=== PATIENT | female | born 1970 | race Caucasian/White ===

== ENCOUNTER 2020-07-14 09:08 | Emergency (ER) | payer OTHER ==
[~2020-07-14] VITALS: Ht 165.1 cm; Wt 136.1 kg
[~2020-07-14 09:08] MED LIST: AZITHROMYCIN 2250 MG PO; CLEOCIN HCL150 MG PO; DOXYCYCLINE 10100 MG PO; FUROSEMIDE PO; HYCET 7.5 MG-3473 ML PO; IBUPROFEN 600600 M1 PO; MOTRIN IB200 MG PO; NOHOMEMEDICATIONS; NORCO 5-325 TA1 EACH PO; PENICILLIN VK500 M1 PO; PREDNISONE 20 M20 MG PO; PROAIR HFA8.5 GM INH; PROMETH-CODEIN 65 ML PO; ROBITUSSIN DM118 ML PO; ULTRAM 50MG TAB50 MG PO; VENTOLIN HFA 1818 GM INH; ZPAK PO
[2020-07-14 10:10] LABS: ABSOLUTE NEUTROPHILS 3.4 thou/uL (1.4-8.2); BASOPHILS 0.6 % (0.0-2.0); EOSINOPHILS 1.3 % (0.0-3.0); HEMATOCRIT 51.5 % (37.0-47.0); HEMOGLOBIN 17.1 gm/dL (12.0-15.0); LYMPHOCYTES 28.6 % (24.0-44.0); MCHC 33.3 g/dL (28.0-37.0); MCV 105.3 fL (80.0-100.0); MONOCYTES 4.8 % (1.0-8.0); PLATELET COUNT 179 thou/uL (150-400); POLYS 64.7 % (36.0-66.0); RBC 4.89 mil/uL (4.20-5.00); WBC 5.3 thou/uL (4.0-11.0)
[2020-07-14] MEDS ORDERED: DICLOFENAC SODI75 MG PO (10:15)
[2020-07-14 10:21] LABS: ANION GAP 6 mmol/L (7-16); BUN 14 mg/dL (7-18); CALCIUM 8.7 mg/dL (8.5-10.1); CHLORIDE 105 mmol/L (98-107); CO2 32 mmol/L (21-32); GLUCOSE 123 mg/dL (74-106); POTASSIUM 4.8 mmol/L (3.5-5.1); SODIUM 143 mmol/L (136-145)
[2020-07-14 10:32] LABS: ALBUMIN 3.3 g/dL (3.4-5.0); DIRECT BILIRUBIN < 0.1 mg/dL (<0.1-0.2); LIPASE 147 U/L (73-393); SGOT 18 U/L (15-37); SGPT 26 U/L (30-65); TOTAL BILIRUBIN 0.6 mg/dL (0.2-1.0); TOTAL PROTEIN 6.7 g/dL (6.4-8.2); TROPONIN-I <0.06 ng/mL (<0.06)
--- NOTE | 2020-07-14 11:07 | EKG ---
[address] [place] [address] ELECTROCARDIOGRAM REPORT Name: JAX HANRA Infante [id number] Admission: 07/14/20 Attend Phys: Discharge: Date of : 72 Report #: [id number] [facility] ED Test Date: 2020-07-14 Test Time: 09:22:00 Pat Name: ROSIE HAN Department: Room: Gender: F Chief Guard: LUIS : 1970 Requested By: Susan Meeks Order Number: [id number] MD: Chema Hill Measurements Intervals [place] Rate: 95 P: 77 NC: 127 QRS: 81 QRSD: 92 T: 60 QT: 349 QTc: 439 Interpretive Statements Sinus rhythm Left atrial enlargement Compared to ECG 12/19/2012 11:32:40 Atrial abnormality now present Sinus arrhythmia no longer present Electronically Signed On 07-14-2020 11:07:00 CDT by Chema Hill [email or web address] <ELECTRONICALLY SIGNED> By: Chema Hill MD 07/14/20 1107 0922 1 Chema Hill MD /MARCEL
[2020-07-14 15:16] VITALS: BP 116/65
== END 2020-07-14 15:18 | disposition home or self-care (01) ==
LOC: ER 09:08
PROVIDERS: Emergency Medicine
DX: R07.9 Chest pain, unspecified (principal); F17.210 Nicotine dependence, cigarettes, uncomplicated; Z79.899 Other long term (current) drug therapy; Z91.048 Other nonmedicinal substance allergy status

== ENCOUNTER 2020-09-19 15:41 | Inpatient (IN) | payer OTHER ==
[~2020-09-19] VITALS: Ht 165.1 cm; Wt 152.4 kg
[~2020-09-19 15:41] MED LIST changes: +DICLOFENAC SODI75 MG PO
[2020-09-19 15:52] VITALS: BP 128/96
[2020-09-19 16:17] LABS: ABSOLUTE NEUTROPHILS 3.9 thou/uL (1.4-8.2); EOSINOPHILS 1.1 % (0.0-3.0); HEMATOCRIT 54.1 % (37.0-47.0); LYMPHOCYTES 21.1 % (24.0-44.0); MCHC 33.3 g/dL (28.0-37.0); MONOCYTES 3.7 % (1.0-8.0); PLATELET COUNT 182 thou/uL (150-400); POLYS 73.1 % (36.0-66.0); RBC 5.15 mil/uL (4.20-5.00); RDW 14.9 % (10.5-14.5); WBC 5.3 thou/uL (4.0-11.0)
[2020-09-19 16:29] LABS: ANION GAP 6 mmol/L (7-16); BUN 12 mg/dL (7-18); CALCIUM 8.7 mg/dL (8.5-10.1); CHLORIDE 103 mmol/L (98-107); CO2 33 mmol/L (21-32); CREATININE 1.1 mg/dL (0.6-1.0); GLUCOSE 119 mg/dL (74-106); POTASSIUM 4.7 mmol/L (3.5-5.1); SODIUM 142 mmol/L (136-145)
[2020-09-19 16:34] LABS: ALBUMIN 3.4 g/dL (3.4-5.0); SGOT 23 U/L (15-37); SGPT 41 U/L (14-59); TOTAL BILIRUBIN 0.6 mg/dL (0.2-1.0); TOTAL PROTEIN 6.8 g/dL (6.4-8.2); TROPONIN-I <0.06 ng/mL (<0.06)
--- NOTE | 2020-09-19 16:44 | EKG ---
[address] [place] [address] ELECTROCARDIOGRAM REPORT Name: ROSIE HAN Room #: REG [facility]#: [id number] Admission: 09/19/20 Attend Phys: Discharge: Date of : 72 Report #: [id number] [facility] ED Test Date: 2020-09-19 Test Time: 16:32:45 Pat Name: ROSIE HAN Department: Room: Gender: F Digital Specialist: ban : 1970 Requested By: Iain Vizcarra Order Number: [id number] MD: Shantanu Pichardo Measurements Intervals [place] Rate: 98 P: 61 DC: 126 QRS: 95 QRSD: 94 T: 53 QT: 350 QTc: 447 Interpretive Statements Sinus rhythm Borderline right axis deviation Baseline wander in lead(s) V2 Compared to ECG 07/14/2020 09:22:00 Atrial abnormality no longer present Electronically Signed On 09-19-2020 16:44:30 CDT by Shantanu Pichardo [email or web address] <ELECTRONICALLY SIGNED> By: Shantanu Pichardo MD, [facility] 09/19/20 1644 1632 1632 Shantanu Pichardo MD, FACC /EPI
[2020-09-19 17:22] LABS: BE(vivo) 1.6 mmol/L (-2 to +3); HCO3 28.6 mmol/L (22.0-26.0); PCO2 52.6 mmHg (35.0-45.0); PO2 61.5 mmHg (80.0-100.0); pH 7.353 (7.360-7.450); sO2 90.2 % (92.0-98.0)
[2020-09-19 20:10] VITALS: BP 124/83
[2020-09-19 20:58] VITALS: BP 91/51
[2020-09-19 21:24] VITALS: BP 132/78
[2020-09-20 03:41] VITALS: BP 128/71
[2020-09-20 04:59] LABS: HEMATOCRIT 52.3 % (37.0-47.0); HEMOGLOBIN 17.2 gm/dL (12.0-15.0); MCH 34.7 pg (26.0-34.0); MCV 105.2 fL (80.0-100.0); RBC 4.97 mil/uL (4.20-5.00); RDW 14.9 % (10.5-14.5); WBC 7.3 thou/uL (4.0-11.0)
[2020-09-20 05:40] LABS: CALCIUM 8.4 mg/dL (8.5-10.1); CREATININE 1.1 mg/dL (0.6-1.0); POTASSIUM 4.5 mmol/L (3.5-5.1)
--- NOTE | 2020-09-20 06:24 | NUR ---
ASSESSMENT: PT ARRIVED TO THE UNIT AT APPROXIMATELY 2100 VIA CART FROM ED. PT IS ALERT AND ORIENT TIMES FOUR. UP AD YASMIN IN THE ROOM. 4-5 LITERS OF O2 PER NC, SATS 90-93% OCCASSIONAL NON-PRODUCTIVE COUGH. SOB WITH EXERTION. DOES NOT WEAR O2 AT HOME. VSS, AFEBRILE. SR PER MONITOR. NO WOUNDS PER ASSESSMENT. WILL CONTINUE TO MONITOR.
[2020-09-20 08:40] VITALS: BP 108/73
[2020-09-20 11:00] VITALS: BP 99/57
[2020-09-20 16:00] VITALS: BP 97/83
--- NOTE | 2020-09-20 17:27 | NUR ---
ASSESSMENT CHARTED - MEDS PER JUN - NO CO'S OF PAIN OR NAUSEA. ELKE DIET AND FLUIDS. UP AD YASMIN IN ROOM. OS HAS REMAINED AT 4 L NC. PT SOB WITH EXERTION. NO CO'S AT THE PRESENT TIME. STATES SHE IS COMFORTABLE.
[2020-09-20 20:15] VITALS: BP 135/55
--- NOTE | 2020-09-21 03:14 | NUR ---
ASSESSMENT: PT REMAIN ALERT AND ORIENT TIMES FOUR. UP AD YASMIN TO BR WITH STEADY GAIT. PT DOING NOC DESAT ON 2 LITERS PER NC. SATS RANGING FROM 88-91% MOST TIMES. DENIES PAIN, N/V. SOB WITH AMBULATION. VSS, AFEBRILE. SALINE LOCKED. SR PER MONITOR. SLOW PROGRESS TOWARDS DC GOALS., WILL CONTINUE TO MONITOR.
[2020-09-21 05:00] VITALS: BP 91/48
[2020-09-21 08:00] VITALS: BP 118/85
[2020-09-21 12:15] VITALS: BP 127/74
[2020-09-21 19:48] VITALS: BP 140/79
[2020-09-22 04:33] VITALS: BP 137/94
--- NOTE | 2020-09-22 05:44 | NUR ---
PROGRESS PT A/O X4 , LUNGS COARSE WITH WHEEZING NOTED THROUGHOUT. ON ROOM AIR SATS AT 88 TO 92. NOCTURNAL OXIMETRY STUDY IN PROGRESS PT DROPPING TO MID 70'S ON 1 LITER O2, THE SOUNDER SHE SLEPT THE LOWER HER O2 SATS BECAME AT ONE POINT IT WAS DOWN TO 29, O2 INCREASED TO 3 LITERS AND SATS BOUNCED RIGHT BACK UP TO HIGH 80'S TO LOW 90'S. SKIN C/D/I VOIDING QS, UP AD YASMIN DENIES PAIN. WANTS TO DISCHARGE HOME FOR FATHERS DAY. SOLUMEDROL AND IV ANTIBIOTICS CONTINUE.
[2020-09-22 08:00] VITALS: BP 124/87
[2020-09-22 16:00] VITALS: BP 128/75
--- NOTE | 2020-09-22 17:47 | NUR ---
PT ALERT AND ORIENTED TIMES FOUR. VSS, SR ON TELE. PT DENIES PAIN/SOA. PT TOLERATES MEDS AND MEALS. PT UP AB YASMIN WITH STEADY GAIT. PT AT BEDSIDE THIS EVENING. PT PRTGRESSING SRINI POC GOALS.
[2020-09-22 19:22] VITALS: BP 120/76
[2020-09-23 04:07] VITALS: BP 121/67
[2020-09-23 08:48] VITALS: BP 124/71
--- NOTE | 2020-09-23 12:02 | 2DMMODE ---
[facility] [place] [address] 2 D/M-MODE ECHOCARDIOGRAM Name: ROSIE HAN Arelis Room #: 211-P ADM IN M.R.#: [id number] Admission: 09/19/20 Attend Phys: Johnie Burk MD Discharge: Date of : 72 Report #: [id number] THIS REPORT FOR: cc: Lissett Rogers,Fadi Flores MD ~ APPROVED REPORT Study performed: 09/23/2020 10:56:05 EXAM: Comprehensive 2D, Doppler, and color-flow Echocardiogram Patient Location: Bedside Room #: 211 Status: routine BSA: 2.46 HR: 95 bpm BP: 121/67 mmHg Rhythm: NSR Other Information Study Quality: Adequate Technically limited study due to body habitus. Indications Dyspnea 2D Dimensions IVSd: 9.06 (7-11mm) LVOT Diam: 21.76 (18-24mm) LVDd: 61.45 mm PWd: 9.50 (7-11mm) Ascending Ao: 39.63 (22-36mm) LVDs: 41.40 (25-40mm) Left Atrium: 41.79 (27-40mm) Aortic Root: 38.02 mm Aortic Valve AoV Peak Shashi.: 1.48 m/s AO Peak Gr.: 8.78 mmHg LVOT Max P.66 mmHg LVOT Max V: 1.08 m/s GAIL Vmax: 2.71 cm2 Mitral Valve E/A Ratio: 0.8 MV Decel. Time: 282.77 ms MV E Max Shashi.: 1.03 m/s [facility] [address] [place] [address] 2 D/M-MODE ECHOCARDIOGRAM Name: ROSIE HAN Arelis Room #: 211-P [facility]#: [id number] Admission: 09/19/20 Attend Phys: Johnie Burk MD Discharge: Date of : 72 Report #: [id number] MV A Shashi.: 1.23 m/s MV PHT: 82.00 ms IVRT: 145.33 ms Pulmonary Valve PV Peak Shashi.: 1.06 m/s PV Peak Gr.: 4.47 mmHg Pulmonary Vein P Vein S: 0.40 m/s P Vein A: 0.36 m/s P Vein D: 0.36 m/s P Vein A Dur.: 100.3 msec P Vein S/D Ratio: 1.11 Left Ventricle The left ventricle is normal size. There is normal left ventricular wall thickness. The overall left ventricular systolic function appears grossly normal. LVEF is 55-60%. Grade I - abnormal relaxation pattern. Right Ventricle The right ventricle is normal size. The right ventricular systolic function is normal. Atria The left atrium size is normal. The right atrium size is normal. Aortic Valve The aortic valve is normal in structure. No aortic regurgitation is present. There is no aortic valvular stenosis. Mitral Valve The mitral valve is normal in structure. Trace mitral regurgitation. No evidence of mitral valve stenosis. Tricuspid Valve The tricuspid valve is normal in structure. There is no tricuspid valve regurgitation noted. Pulmonic Valve The pulmonary valve is normal in structure. There is no pulmonic valvular regurgitation. Great Vessels The aortic root is normal in size. IVC is normal in size and collapses >50% with inspiration. [facility] [place] [address] 2 D/M-MODE ECHOCARDIOGRAM Name: GUILLEROSIE Room #: 211-P ADM IN M.R.#: [id number] Admission: 09/19/20 Attend Phys: Johnie Burk MD Discharge: Date of : 72 Report #: [id number] Pericardium There is no pericardial effusion. <Conclusion> The left ventricle is normal size. There is normal left ventricular wall thickness. The overall left ventricular systolic function appears grossly normal. Grade I - abnormal relaxation pattern. The right ventricle is normal size. The left atrium size is normal. The aortic valve is normal in structure. Trace mitral regurgitation. <ELECTRONICALLY SIGNED> By: Fadi Miller MD 09/23/20 1202 1202 1202 Fadi Miller MD /INF
--- NOTE | 2020-09-23 14:34 | NUR ---
PT RESTING COMFORTABLY. ECHO DONE AT BEDSIDE. DR CLAUDIO WOULD LIKE THE PT TO STAY ONE MORE DAY. PT AFEBRILE, ADEQUATE UOP, APPROPRIATE APPETITE. PT HAS BEEN THOUROUGHLY UPDATED AND EDUCATED ON PT CONDITION AND POC. PT PROGRESSING TOWARDS POC.
--- NOTE | 2020-09-23 15:04 | NUR ---
met with patient who admits with dsypnea. Patient reports she is staying at her sisters home. She works 3 days a week. She has spoken with employment who has taken her off the schedule until she can return to work. Plan dc home independently. patient likely needs oxygen for home. Patients PCP Dr Lissett Rogers. Casemgt following
[2020-09-23 16:29] VITALS: BP 116/63
[2020-09-23 20:00] VITALS: BP 124/72
[2020-09-24 04:10] VITALS: BP 133/88
[2020-09-24 06:14] LABS: HEMATOCRIT 50.2 % (37.0-47.0); HEMOGLOBIN 16.7 gm/dL (12.0-15.0); MCH 34.4 pg (26.0-34.0); MCHC 33.3 g/dL (28.0-37.0); MCV 103.2 fL (80.0-100.0); RBC 4.86 mil/uL (4.20-5.00); RDW 14.5 % (10.5-14.5); WBC 6.8 thou/uL (4.0-11.0)
[2020-09-24 06:27] LABS: CALCIUM 8.2 mg/dL (8.5-10.1); CREATININE 0.9 mg/dL (0.6-1.0); MAGNESIUM 2.1 mg/dL (1.8-2.4); POTASSIUM 5.2 mmol/L (3.5-5.1)
--- NOTE | 2020-09-24 07:25 | NUR ---
DENIES PAIN AND SOB.PATIENT ON 3L NC.RECEIVES BREATHING.MONITOR SHOWS SR.POC CONTINUED.
[2020-09-24 08:35] VITALS: BP 145/90
--- NOTE | 2020-09-24 10:28 | NUR ---
Nutrition: pt admitted with acute respiratory failure, bronchospasm, possible new dx COPD. Seen due to BMI 55, extreme class 3 obesity. Pt eating 75-100% of meals on regular diet. No recent weight changes other than fluid retention, 1+ gen. edema. Currently with elevated K+-5.2. RD offered diet education for weight loss, pt declined and states she received materials from her doctor. May consider heart healthy diet restriction rather than regular. Low nutrition risk.
[2020-09-24 11:40] VITALS: BP 122/75
[2020-09-24] MEDS ORDERED: ALBUTEROL2.5 MG/0.5 INH (11:46)
[2020-09-24] MEDS ORDERED: LASIX 40 MG TAB40 MG PO (11:46)
[2020-09-24] MEDS ORDERED: MIRALAX17 GM PO (11:46)
[2020-09-24] MEDS ORDERED: LEVOFLOXACIN500 MG PO (11:46)
[2020-09-24] MEDS ORDERED: PREDNISONE 20 M20 M1 PO (11:46)
[2020-09-24] MEDS ORDERED: PEPCID20 MG PO (11:46)
[2020-09-24] MEDS ORDERED: Nicotine Transdermal TRANSDERM (11:46)
[2020-09-24] MEDS ORDERED: ACETAMINOPHEN325 M1 PO (11:46)
[2020-09-24 12:50] VITALS: BP 147/80
[2020-09-24 13:16] VITALS: BP 122/75
[2020-09-24 14:29] VITALS: BP 122/75
--- NOTE | 2020-09-24 16:10 | NUR ---
PT'S IV REMOVED AND TELE REMOVED. PT GIVEN D/C PAPERWORKS AND NEW PRESCRIPTIONS GIVEN. PT GIVEN CARE NOTES FOR NEW PRESCRIPTIONS. CASE MANAGEMENT SET PT UP WITH 1 TANK OF HOME O2 AND IT WAS DELIVERED TO PT PRIOR TO D/C. PT WAS WHEELED TO PRIVATE VEHICLE VIA WHEELCHAIR. PT TOOK HER BELONGINGS WITH HER AND NEW O2 TANK WELL.
--- NOTE | 2020-09-24 17:52 | NUR ---
Patient to dc home she does not want home health care. Agreeable to home oxygen and does not have a preference for DME. Faxed clinical to [facility]. Reviewed with patient process of dc with oxygen. She is staying at sisters home. Veridied address and alerted [facility] [address] [place] [address]. Alerted to patient once home call [facility] to deliver oxygen. no further needs
== END 2020-09-24 16:00 | disposition home or self-care (01) | DRG 193 ==
LOC: ER 15:41 → EROBS 19:40 → 2N 20:58
PROVIDERS: Nurse Practitioner Family; Physician Assistant; ADMIT Internal Medicine; ATTEND Internal Medicine
DX: J18.9 Pneumonia, unspecified organism (principal); J96.21 Acute and chronic respiratory failure with hypoxia; J96.22 Acute and chronic respiratory failure with hypercapnia; J44.1 Chronic obstructive pulmonary disease with (acute) exacerbation; J44.0 Chronic obstructive pulmonary disease with (acute) lower respiratory infection; E66.2 Morbid (severe) obesity with alveolar hypoventilation; Z68.43 Body mass index [BMI] 50.0-59.9, adult; J11.1 Influenza due to unidentified influenza virus with other respiratory manifestations; F17.210 Nicotine dependence, cigarettes, uncomplicated; D75.1 Secondary polycythemia; Z20.822 Contact with and (suspected) exposure to COVID-19; J45.909 Unspecified asthma, uncomplicated; Z82.49 Family history of ischemic heart disease and other diseases of the circulatory system; Z83.3 Family history of diabetes mellitus; Z80.3 Family history of malignant neoplasm of breast; Z71.6 Tobacco abuse counseling; Z83.6 Family history of other diseases of the respiratory system; Z91.19 Patient's noncompliance with other medical treatment and regimen
CPT/HCPCS: 10081

== ENCOUNTER 2020-10-05 21:14 | Emergency (ER) | payer OTHER ==
[~2020-10-05] VITALS: Ht 162.6 cm; Wt 156.0 kg
[~2020-10-05 21:14] MED LIST changes: +ACETAMINOPHEN325 M1 PO; +ALBUTEROL2.5 MG/0.5 INH; +LASIX 40 MG TAB40 MG PO; +LEVOFLOXACIN500 MG PO; +MIRALAX17 GM PO; +Nicotine Transdermal TRANSDERM; +PEPCID20 MG PO; +PREDNISONE 20 M20 M1 PO
[2020-10-05 21:28] VITALS: BP 119/71
[2020-10-05] MEDS ORDERED: DICLOFENAC35 MG PO (21:47)
[2020-10-05 22:04] LABS: ABSOLUTE NEUTROPHILS 9.5 thou/uL (1.4-8.2); BASOPHILS 0.4 % (0.0-2.0); EOSINOPHILS 0.2 % (0.0-3.0); LYMPHOCYTES 10.8 % (24.0-44.0); MCH 35.9 pg (26.0-34.0); MCHC 35.4 g/dL (28.0-37.0); MCV 101.5 fL (80.0-100.0); MONOCYTES 3.8 % (1.0-8.0); PLATELET COUNT 190 thou/uL (150-400); POLYS 84.8 % (36.0-66.0); RBC 5.02 mil/uL (4.20-5.00); RDW 14.7 % (10.5-14.5); WBC 11.2 thou/uL (4.0-11.0)
[2020-10-05 22:14] LABS: CALCIUM 8.7 mg/dL (8.5-10.1); CREATININE 1.1 mg/dL (0.6-1.0)
[2020-10-05 22:16] LABS: POTASSIUM 4.4 mmol/L (3.5-5.1)
[2020-10-05 22:20] LABS: ALBUMIN 3.5 g/dL (3.4-5.0); TOTAL BILIRUBIN 1.1 mg/dL (0.2-1.0); TOTAL PROTEIN 6.7 g/dL (6.4-8.2)
== END 2020-10-05 23:04 | disposition home or self-care (01) ==
LOC: ER 21:14
PROVIDERS: Emergency Medicine
DX: R10.11 Right upper quadrant pain (principal); F17.210 Nicotine dependence, cigarettes, uncomplicated; Z86.39 Personal history of other endocrine, nutritional and metabolic disease; Z86.32 Personal history of gestational diabetes; Z98.890 Other specified postprocedural states; Z87.891 Personal history of nicotine dependence

== ENCOUNTER → 2020-11-08 | Outpatient (CLI) | payer OTHER ==
[~2020-11-08] MED LIST changes: +DICLOFENAC35 MG PO
== END ==
LOC: RAD 08:31
PROVIDERS: ATTEND Pediatrics
DX: J84.89 Other specified interstitial pulmonary diseases (principal); J98.11 Atelectasis; R91.8 Other nonspecific abnormal finding of lung field

== ENCOUNTER → 2020-12-28 | Outpatient (CLI) | payer OTHER ==
--- NOTE | 2021-01-20 15:11 | SLE ---
[facility] [place] [place] [address] POLYSOMNOGRAPHY STUDY Name: ROSIE HAN Room #: REG [facility]#: [id number] Admission: 12/28/20 Attend Phys: Alex Paulino MD Discharge: Date of : 72 Report #: [id number] THIS REPORT FOR: cc: Lissett Rogers Christine L. DO Khan, Aman U. MD ~ cc: Alex Paulino MD DATE OF SERVICE: 12/29/2020 SLEEP STUDY ATTENDING PHYSICIAN: Dr. Alex Paulino. The patient is 50 years old who weighs 333 pounds with a BMI of 59. The patient underwent split night study performed at [facility]. During the night study, the patient spent 360 minutes in bed and slept for 275 minutes with a sleep efficiency of 76%. Sleep latency was 27.7 minutes with a REM latency of 116 minutes. Sleep architecture showed increased stage I and stage II sleep, reduced N3 sleep and reduced REM sleep. During the initial diagnostic portion of the study, the patient slept for 120 minutes. During that time, there were 13 obstructive apneas, no mixed apneas and 2 central apneas. The patient had 77 hypopneas. The patient's AHI was 45.8 per hour with a REM AHI of 54.5 per hour and a supine AHI of 0 per hour. EKG monitoring revealed an average heart rate of 109 beats per minute. No sustained arrhythmias were observed. PLMs were seen at an index of 75 per hour and 11 per hour caused EEG arousals. PLM index improved to 27 per hour with an arousal index of 5 per hour while the patient slept on CPAP. Nocturnal oximetry study during the diagnostic portion revealed an average oxygen saturation of 65% with a lowest of 34%. 22 minutes were spent with oxygen saturation between 70 and 79% and then 48 minutes with saturation between 60 and 69% and another 34 minutes with saturation between 50 and 59%. The patient met the split night criteria for CPAP initiation. This started at 10 cm of water for patient's comfort. Pressure was titrated up to 15 cm of water. Due to persistent respiratory events, the patient was switched to BiPAP at a pressure of 14/16. The patient's nocturnal hypoxia persisted despite improvement in respiratory events. Two liters of oxygen was added. At the final BiPAP pressure of 18/12 with 2 liters of oxygen, the patient had 32 minutes of sleep. The patient's AHI was still 33 per hour. Optimum CPAP/BiPAP [facility] [address] [place] [address] POLYSOMNOGRAPHY STUDY Name: ROSIE HAN Room #: [facility]#: [id number] Admission: 12/28/20 Attend Phys: Alex Paulino MD Discharge: Date of : 72 Report #: [id number] pressure was not achieved. I would recommend the patient should be placed on an auto BiPAP. IMPRESSION: 1. Severe ANTONIETA at an AHI of 45.8 per hour. 2. Severe nocturnal hypoxia, not completely resolved with BiPAP. 3. Severe PLMs which improved from a PLM index of 75 per hour to 27 per hour while the patient slept on CPAP. RECOMMENDATIONS: 1. Optimum CPAP/BiPAP pressure was not achieved on this split night study. I would recommend the patient should be placed on auto BiPAP with a maximum IPAP pressure of 22 and a minimum EPAP pressure of 16 with pressure support of 4. The patient should be placed on 2 liters of oxygen with the BiPAP. The patient should have an outpatient nocturnal oximetry study at this final pressure to assess the efficacy of 2 liters of oxygen. 2. Once the patient is optimally treated, then follow up in 4-6 weeks to assess compliance and to document clinical improvement along with review of the download data. 3. Weight loss is strongly advised. 4. Avoid [employer] depressants. 5. Cautioned regarding driving until symptoms of sleep apnea resolve with the above recommendation. <ELECTRONICALLY SIGNED> By: Patrick Schultz MD 01/20/21 1511 1555 1626 Patrick Schultz MD /nt
== END ==
LOC: SLEEPLAB 09:14
PROVIDERS: ATTEND Internal Medicine Pulmonary Disease
DX: G47.33 Obstructive sleep apnea (adult) (pediatric) (principal); G47.19 Other hypersomnia; R53.83 Other fatigue; J44.9 Chronic obstructive pulmonary disease, unspecified; J45.30 Mild persistent asthma, uncomplicated; J96.11 Chronic respiratory failure with hypoxia; E66.01 Morbid (severe) obesity due to excess calories; Z68.43 Body mass index [BMI] 50.0-59.9, adult; Z72.0 Tobacco use; D75.1 Secondary polycythemia; Z86.16 Personal history of COVID-19; Z20.822 Contact with and (suspected) exposure to COVID-19

== ENCOUNTER 2021-02-06 11:39 | Inpatient (IN) | payer OTHER ==
[~2021-02-06] VITALS: Ht 162.6 cm; Wt 145.8 kg
[~2021-02-06 11:39] MED LIST changes: +FUROSEMIDE 40 M40 MG PO
[2021-02-06] MEDS ORDERED: AUGMENTIN 875-1 EACH PO (12:47)
[2021-02-06] MEDS ORDERED: PULMICORT0.5 MG/21 INH (12:48)
[2021-02-06] MEDS ORDERED: IPRAT-ALBUT 0.5-3 ML INH (12:48)
[2021-02-06] MEDS ORDERED: PREDNISONE 10 M10 M1 PO (12:48)
[2021-02-07 20:50] VITALS: BP 125/86
[2021-02-08 06:16] LABS: HEMOGLOBIN 18.8 gm/dL (12.0-15.0); MCH 29.4 pg (26.0-34.0); MCV 94.8 fL (80.0-100.0); RBC 6.39 mil/uL (4.20-5.00); RDW 19.1 % (10.5-14.5); WBC 9.5 thou/uL (4.0-11.0)
[2021-02-08 06:29] LABS: HEMATOCRIT 60.6 % (37.0-47.0)
[2021-02-08 06:56] LABS: CALCIUM 9.4 mg/dL (8.5-10.1); POTASSIUM 3.7 mmol/L (3.5-5.1)
[2021-02-08 07:18] LABS: FOLIC ACID 5.3 ng/mL (8.6-58.9)
[2021-02-08 08:00] VITALS: BP 111/56
[2021-02-08 12:44] LABS: HEMOGLOBIN 18.8 gm/dL (12.0-15.0); MCH 29.5 pg (26.0-34.0); MCHC 31.2 g/dL (28.0-37.0); MCV 94.7 fL (80.0-100.0); PLATELET COUNT 218 thou/uL (150-400); RBC 6.37 mil/uL (4.20-5.00); RDW 19.4 % (10.5-14.5); WBC 8.1 thou/uL (4.0-11.0)
[2021-02-08 12:58] LABS: HEMATOCRIT 60.3 % (37.0-47.0)
[2021-02-08 13:55] LABS: ANISOCYTOSIS 2+
[2021-02-08 14:29] LABS: BASOPHILS 0.2 % (0.0-2.0); EOSINOPHILS 0.1 % (0.0-3.0); HEMATOCRIT 58.6 % (37.0-47.0); HEMOGLOBIN 18.5 gm/dL (12.0-15.0); LYMPHOCYTES 5.7 % (24.0-44.0); MCH 29.4 pg (26.0-34.0); MCHC 31.5 g/dL (28.0-37.0); MCV 93.3 fL (80.0-100.0); MONOCYTES 4.6 % (1.0-8.0); PLATELET COUNT 198 thou/uL (150-400); POLYS 89.4 % (36.0-66.0); RBC 6.28 mil/uL (4.20-5.00); RDW 18.4 % (10.5-14.5); WBC 7.8 thou/uL (4.0-11.0)
[2021-02-08 15:48] LABS: ANISOCYTOSIS 2+; TARGET CELLS FEW
[2021-02-08 19:04] VITALS: BP 108/58
[2021-02-09 06:11] LABS: HEMATOCRIT 57.9 % (37.0-47.0); HEMOGLOBIN 18.1 gm/dL (12.0-15.0); MCH 29.5 pg (26.0-34.0); MCHC 31.2 g/dL (28.0-37.0); MCV 94.6 fL (80.0-100.0); RBC 6.12 mil/uL (4.20-5.00); RDW 18.9 % (10.5-14.5); WBC 6.9 thou/uL (4.0-11.0)
[2021-02-09 06:22] LABS: CALCIUM 9.2 mg/dL (8.5-10.1); CREATININE 0.8 mg/dL (0.6-1.0)
[2021-02-09 08:30] VITALS: BP 96/53
[2021-02-09 19:17] VITALS: BP 111/55
[2021-02-10 09:14] VITALS: BP 98/60
[2021-02-10 19:49] VITALS: BP 102/60
[2021-02-11 09:57] VITALS: BP 99/61
[2021-02-11 19:11] VITALS: BP 108/64
[2021-02-12 08:00] VITALS: BP 106/63
[2021-02-12 11:52] VITALS: BP 106/63
[2021-02-12 19:56] VITALS: BP 123/77
[2021-02-13 08:00] VITALS: BP 117/72
[2021-02-13 10:22] VITALS: BP 117/72
[2021-02-13 19:29] VITALS: BP 119/73
[2021-02-14 03:55] LABS: ABSOLUTE NEUTROPHILS 3.9 thou/uL (1.4-8.2); BASOPHILS 0.7 % (0.0-2.0); EOSINOPHILS 1.1 % (0.0-3.0); HEMATOCRIT 50.9 % (37.0-47.0); HEMOGLOBIN 15.9 gm/dL (12.0-15.0); LYMPHOCYTES 32.6 % (24.0-44.0); MCH 29.6 pg (26.0-34.0); MCHC 31.3 g/dL (28.0-37.0); MCV 94.5 fL (80.0-100.0); MONOCYTES 6.8 % (1.0-8.0); PLATELET COUNT 215 thou/uL (150-400); POLYS 58.8 % (36.0-66.0); RBC 5.38 mil/uL (4.20-5.00); RDW 19.1 % (10.5-14.5); WBC 6.6 thou/uL (4.0-11.0)
[2021-02-14 04:09] LABS: CALCIUM 8.5 mg/dL (8.5-10.1); MAGNESIUM 1.6 mg/dL (1.8-2.4); POTASSIUM 3.3 mmol/L (3.5-5.1)
[2021-02-14 08:00] VITALS: BP 107/68
[2021-02-14] MEDS ORDERED: PULMICORT0.5 MG/21 INH (08:04)
[2021-02-14] MEDS ORDERED: FOLIC ACID1 MG PO (08:04)
[2021-02-14] MEDS ORDERED: MIRALAX17 GM PO (08:04)
[2021-02-14] MEDS ORDERED: VITAMIN B-12500 MCG PO (08:04)
[2021-02-14] MEDS ORDERED: FUROSEMIDE 40 M40 MG PO (08:04)
[2021-02-14] MEDS ORDERED: IPRAT-ALBUT 0.5-3 ML INH (08:04)
[2021-02-14] MEDS ORDERED: PREDNISONE 10 M10 M1 PO (08:35)
[2021-02-14] MEDS ORDERED: VITAMIN D350 MCG PO (08:35)
[2021-02-14 09:09] VITALS: BP 119/73
--- NOTE | 2021-02-19 12:42 | PLAN ---
[facility] [place] [address] [place] [address] REHAB UNIT PLAN OF CARE Name: ROSIE HAN Room #: 505-P [facility] IN .R.#: [id number] Admission: 02/07/21 Attend Phys: Oli Bowie MD Discharge: 02/14/21 Date of : 72 Report #: [id number] THIS REPORT FOR: cc: FAM - Family physician unknown FAM - Family physician unknown Oli Bowie MD ~ DATE OF SERVICE: 02/10/2021 PROGRESS NOTE AND OVERALL PLAN OF CARE HISTORY OF PRESENT ILLNESS: The patient is seen back in followup. She was in no distress. Last recorded temperature 98.4, pulse 94, respirations 20, blood pressure 111/55. She is alert, follows basic commands. Upper extremity strength is grade 4-/5. Lower extremity strength is 4-/5. She is noted to have word finding and expressive aphasia deficits but can follow basic commands. She has been on 4 liters of nasal cannula. She was noted to have the left lateral frontal lobe hemorrhagic infarct and also had a pulmonary embolism with IVC placed. Per jury consultant note on 02/06/2021, he recommended a 30-day event monitor to be placed to evaluate the patient for atrial fibrillation. Hematology is also seeing the patient with concern regarding polycythemia thought to be chronic. Functionally, the patient has been working in therapies with transfers contact guard assistance. She has been ambulating 75 feet. She is on oxygen and needs assistance as noted. In occupational therapy, she is contact guard assistance for lower body dressing. She has fair static standing balance that is noted. In speech therapy, her expression is moderate to severe, cognition is also moderate to severe and memory is moderate to severe. ASSESSMENT: A 50-year-old white female with the following problem list: 1. 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 2. Toxic metabolic encephalopathy. 3. Pulmonary embolism, status post IVC filter. 4. Acute on chronic respiratory failure with home O2 at 2 liters nasal cannula. She is on increased oxygen here. 5. Urinary tract infection. 6. Pneumonia. 7. Morbid obesity. 8. Polycythemia. 9. History of spinal stimulator. PLAN: The overall plan of care is based on the pre-admit screen and information garnered from therapy assessments. 1. Estimated length of stay is probably around 10 days. 2. Medical prognosis is reasonably good. [address] [address] REHAB UNIT PLAN OF CARE Name: ROSIE HAN Room #: 505-P [facility] IN .R.#: [id number] Admission: 02/07/21 Attend Phys: Oli Bowie MD Discharge: 02/14/21 Date of : 72 Report #: [id number] 3. Anticipated interventions includes the interdisciplinary acute inpatient rehabilitation program. 4. Anticipated functional outcomes would be for the patient to become modified independent with transfers, mobility, ADLs and to improve as far as cognition and expression so that she can return back to the home setting. 5. Discharge destination would be back home where she lives with her fiance, son and her sister. 6. Expected therapy by discipline includes PT, OT and speech 1 hour per day each 5 days a week throughout the duration of the acute inpatient rehabilitation stay. ADDENDUM: The patient's prognosis for significant practical improvement within a reasonable period of time appears good. Given the patient's complex medical condition and risk of further medical complication, rehabilitation services could not be safely provided at the lower level of care such as a nursing home facility. <ELECTRONICALLY SIGNED> By: Oli Bowie MD 02/19/21 1242 0917 0935 Oli Bowie MD /nt
== END 2021-02-14 10:30 | disposition home health service (06) | DRG 64 ==
PROVIDERS: Hospitalist; Internal Medicine; Nurse Practitioner; Nurse Practitioner Family; ADMIT Physical Medicine & Rehabilitation; ATTEND Physical Medicine & Rehabilitation
PROC: 5A09357 Assistance with Respiratory Ventilation, Less than 24 Consecutive Hours, Continuous Positive Airway Pressure (ICD-10-PCS; principal; 2021-02-07)
PROC: 5A09357 Assistance with Respiratory Ventilation, Less than 24 Consecutive Hours, Continuous Positive Airway Pressure (ICD-10-PCS; 2021-02-08)
PROC: 5A09357 Assistance with Respiratory Ventilation, Less than 24 Consecutive Hours, Continuous Positive Airway Pressure (ICD-10-PCS; 2021-02-10)
PROC: 5A09357 Assistance with Respiratory Ventilation, Less than 24 Consecutive Hours, Continuous Positive Airway Pressure (ICD-10-PCS; 2021-02-11)
PROC: 5A09357 Assistance with Respiratory Ventilation, Less than 24 Consecutive Hours, Continuous Positive Airway Pressure (ICD-10-PCS; 2021-02-13)
PROC: 5A09357 Assistance with Respiratory Ventilation, Less than 24 Consecutive Hours, Continuous Positive Airway Pressure (ICD-10-PCS; 2021-02-14)
DX: I63.512 Cerebral infarction due to unspecified occlusion or stenosis of left middle cerebral artery (principal); A41.9 Sepsis, unspecified organism; G92.8 Other toxic encephalopathy; J18.9 Pneumonia, unspecified organism; I26.99 Other pulmonary embolism without acute cor pulmonale; J96.21 Acute and chronic respiratory failure with hypoxia; J96.22 Acute and chronic respiratory failure with hypercapnia; N39.0 Urinary tract infection, site not specified; R57.9 Shock, unspecified; J44.1 Chronic obstructive pulmonary disease with (acute) exacerbation; Z68.43 Body mass index [BMI] 50.0-59.9, adult; J44.0 Chronic obstructive pulmonary disease with (acute) lower respiratory infection; E53.8 Deficiency of other specified B group vitamins; K59.00 Constipation, unspecified; D75.1 Secondary polycythemia; F17.210 Nicotine dependence, cigarettes, uncomplicated; I50.9 Heart failure, unspecified; I11.0 Hypertensive heart disease with heart failure; E66.01 Morbid (severe) obesity due to excess calories; G47.33 Obstructive sleep apnea (adult) (pediatric); E55.9 Vitamin D deficiency, unspecified; F01.50 Vascular dementia, unspecified severity, without behavioral disturbance, psychotic disturbance, mood disturbance, and anxiety; Z95.828 Presence of other vascular implants and grafts
CPT/HCPCS: 10112

== ENCOUNTER → 2021-03-18 | Outpatient (CLI) | payer OTHER ==
[~2021-03-18] MED LIST changes: +AUGMENTIN 875-1 EACH PO; +FOLIC ACID1 MG PO; +IPRAT-ALBUT 0.5-3 ML INH; +PREDNISONE 10 M10 M1 PO; +PULMICORT0.5 MG/21 INH; +VITAMIN B-12500 MCG PO; +VITAMIN D350 MCG PO
[2021-03-18 14:52] LABS: ABSOLUTE NEUTROPHILS 3.7 thou/uL (1.4-8.2); BASOPHILS 0.7 % (0.0-2.0); EOSINOPHILS 1.2 % (0.0-3.0); HEMATOCRIT 46.5 % (37.0-47.0); HEMOGLOBIN 15.4 gm/dL (12.0-15.0); LYMPHOCYTES 36.1 % (24.0-44.0); MCH 30.4 pg (26.0-34.0); MCV 91.9 fL (80.0-100.0); MONOCYTES 5.3 % (1.0-8.0); PLATELET COUNT 211 thou/uL (150-400); POLYS 56.7 % (36.0-66.0); RBC 5.06 mil/uL (4.20-5.00); RDW 20.3 % (10.5-14.5); WBC 6.5 thou/uL (4.0-11.0)
[2021-03-18 15:11] LABS: ALBUMIN 3.6 g/dL (3.4-5.0); CALCIUM 9.4 mg/dL (8.5-10.1); CREATININE 0.9 mg/dL (0.6-1.0); POTASSIUM 3.9 mmol/L (3.5-5.1); TOTAL BILIRUBIN 0.9 mg/dL (0.2-1.0); TOTAL PROTEIN 6.7 g/dL (6.4-8.2)
== END ==
LOC: LAB 14:17
PROVIDERS: ATTEND Internal Medicine
DX: D45 Polycythemia vera (principal)

== ENCOUNTER → 2021-03-24 | Outpatient (CLI) | payer OTHER | LOC: BC 14:41 | PROVIDERS: ATTEND Internal Medicine | DX: Z12.31 Encounter for screening mammogram for malignant neoplasm of breast (principal); N64.89 Other specified disorders of breast ==